=== PATIENT | female | born 1990 | race African-American/Black ===

== ENCOUNTER 2019-11-10 03:12 | Emergency (ER) | payer OTHER, SELFPAY ==
[2019-11-10] VITALS (7 sets, daily range): BP systolic 100–147; BP diastolic 61–91; PULSE 61–100; RESP 14–19; TEMP 36.2–36.8; O2SAT 98–100
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
--- NOTE | 2019-11-10 03:45 | ECG_ITS ---
Measurements Intervals [place] Rate: 94 P: 76 MT: 148 QRS: 66 QRSD: 82 T: 40 QT: 367 QTc: 460 Interpretive Statements SINUS RHYTHM POSSIBLE LEFT ATRIAL ENLARGEMENT BORDERLINE ST-T WAVE ABNORMALITY- INFERIOR LEADS BASELINE ARTIFACT- II, III, AVL, AVF, V5 BORDERLINE ECG Electronically Signed On 11-10-2019 8:05:43 CDT by Shree Gonzalez D.O.
[2019-11-10 04:08] LABS: Basophils Percent Auto 0.5 % (0.2-1.2); Eosinophils Absolute Auto 0.1 K/mm3 (0-0.3); Eosinophils Percent Auto 1.6 % (0-4.4); Hematocrit 37.7 % (37.0-47.0); Hemoglobin 12.4 g/dL (12.0-15.0); Lymphocytes Absolute Auto 1.98 K/mm3 (0.9-3.2); Lymphocytes Percent Auto 53.4 % (18.3-44.2); Mean Corpuscular HGB Conc 32.9 g/dl (32-36); Mean Corpuscular Hemoglobin 27.1 pg (26-34); Mean Corpuscular Volume 82.5 fl (80-100); Monocytes Absolute Auto 0.5 K/mm3 (0.1-0.6); Monocytes Percent Auto 12.7 % (2.6-8.5); Neutrophils Absolute Auto 1.2 K/mm3 (1.3-6.7); Neutrophils Percent Auto 31.8 % (45.5-73.1); Platelet Count Result 330 k/mm3 (150-375); Red Blood Count 4.57 M/mm3 (4.2-5.4); Red Cell Distribution Width 15.1 % (11.5-14.5); White Blood Count 3.7 K/mm3 (4.5-10.0)
[2019-11-10 04:20] LABS: Alanine Aminotransferase 10 U/L (4-35); Albumin Level 4.4 g/dL (3.5-5.1); Alkaline Phosphatase 70 U/L (38-126); Aspartate Amino Transferase 23 U/L (14-36); Bilirubin,Total 0.1 mg/dL (0.2-1.3); Blood Urea Nitrogen 3 mg/dL (7-17); Calcium 8.9 mg/dL (8.4-10.2); Carbon Dioxide 25 mmol/L (22-30); Chloride 111 mmol/L (98-107); Estimated CRCL calculation 69 ml/min; Estimated Glomerular Filt Rate > 60; Glucose 101 mg/dL (65-105); Potassium 3.7 mmol/L (3.4-5.0); Sodium 144 mmol/L (137-145)
[2019-11-10 04:21] LABS: Acetaminophen < 10 ug/mL (10-30); Ethanol 277 mg/dL (<10); Salicylate < 1.0 mg/dL (2-20)
--- NOTE | 2019-11-10 04:22 | PC.NURSE ---
PT REFUSING TO SIT IN BED AND MONITOR LEADS ON. PT HAD TO BE TOLD MULTIPLE TIMES TO STAY IN ROOM.
--- NOTE | 2019-11-10 04:25 | PC.NURSE ---
PT CURRENTLY ONLY SPEAKING 3-4 WORD PHRASES, MOST OF WHICH MAKE NO SENSE.
[2019-11-10 04:34] LABS: Add Urine Microscopic? NO; Appearance Urine Clear (Clear); Bilirubin Urine Negative (Negative); Blood Urine Negative (Negative); Color Urine Straw (Yellow); Glucose Urine UA Negative (Negative); Ketones Urine Negative (Negative); Leukocyte Esterase Ur Negative LEU/UL (Negative); Nitrate Urine Negative (Negative); Protein Urine Negative (Negative); Specific Grav Ur 1.006 (1.001-1.035); Urobilinogen Urine Negative mg/dL (<2.0)
[2019-11-10 04:50] LABS: Amphetamine Screen Urine Negative (Negative); Barbiturate Screen Urine Negative (Negative); Benzodiazepines Screen Urine Negative (Negative); Cannabinoid Screen Urine Positive (Negative); Cocaine Screen Urine Negative (Negative); Methadone Screen Urine Negative (Negative); Opiate Screen Urine Negative (Negative); Phencyclidine Screen Urine Negative (Negative)
--- NOTE | 2019-11-10 07:21 | PC.NURSE ---
Assumed care of pt, pt is alert and answering questions. Lights dimmed and pt updated on POC. Pt moving around room, hyperventilating and making statements of I just want this to pass, I just want to feel better. Pt denies any HI/SI at this time. Pt lifting lid to trash can and drinking water from sink.
--- NOTE | 2019-11-10 09:00 | PC.NURSE ---
Pt c/o frontal headache a 04/17, reports PMH of migraine h/a's. Pt is requesting Tylenol and Zofran. EDP aware and gave VORB for requested meds.
[2019-11-10] MEDS: ONDANSETRON INJ 4 MG/2 ML VIAL IV PUSH (09:05)
[2019-11-10] MEDS: ACETAMINOPHEN 500 MG TABLET 1000 MG PO (09:06)
[2019-11-10] MEDS: METOCLOPRAMIDE HCL INJ 10 MG/2 ML VIAL IV PUSH (13:07)
[2019-11-10] MEDS: PANTOPRAZOLE SODIUM IV 40 MG VIAL IV PUSH (13:08)
== END 2019-11-10 13:14 | disposition home or self-care (01) ==
PROVIDERS: Emergency Provider Emergency Medicine
DX: F12.90 Cannabis use, unspecified, uncomplicated (principal); F10.929 Alcohol use, unspecified with intoxication, unspecified; Y90.7 Blood alcohol level of 200-239 mg/100 ml; Z87.891 Personal history of nicotine dependence; F41.9 Anxiety disorder, unspecified; F31.9 Bipolar disorder, unspecified; M81.0 Age-related osteoporosis without current pathological fracture
CPT/HCPCS: 36415; 80053; 80307; 81003; 81025; 85025; 93005; 96374; 96375; 99284; A9270; C9113; J2405; J2765

== ENCOUNTER 2020-04-07 09:16 | Emergency (ER) | payer OTHER, SELFPAY ==
[2020-04-07 09:23] VITALS: BP 133/84; PULSE 85; RESP 22; TEMP 36.3; O2SAT 100
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
[2020-04-07] MEDS: oxyCODONE/ACETAMINOPHEN 5-325 MG TABLET 1 TABLET PO (09:50)
[2020-04-07 10:34] VITALS: BP 126/82; PULSE 88; RESP 17; O2SAT 100
== END 2020-04-07 10:35 | disposition home or self-care (01) ==
PROVIDERS: Emergency Provider Emergency Medicine
DX: K02.9 Dental caries, unspecified (principal); F41.9 Anxiety disorder, unspecified; F31.9 Bipolar disorder, unspecified; M81.0 Age-related osteoporosis without current pathological fracture; Z87.891 Personal history of nicotine dependence
CPT/HCPCS: 99283; A9270

== ENCOUNTER 2022-01-15 17:31 | Emergency (ER) | payer OTHER, SELFPAY ==
[2022-01-15 17:49] VITALS: BP 107/80; PULSE 102; RESP 20; TEMP 36.8; O2SAT 100
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
== END 2022-01-15 18:31 | disposition home or self-care (01) ==
PROVIDERS: Emergency Provider Nurse Practitioner Family
DX: U07.1 COVID-19 (principal); S30.861A Insect bite (nonvenomous) of abdominal wall, initial encounter; W57.XXXA Bitten or stung by nonvenomous insect and other nonvenomous arthropods, initial encounter; Z87.891 Personal history of nicotine dependence
CPT/HCPCS: 87426; 87804; 99213; C9803; G0463